=== PATIENT | male | born 1995 | race Caucasian/White ===

== ENCOUNTER → 2016-10-15 | Outpatient (CLI) | payer BC ==
[~2016-10-15] MED LIST: AMOX/CLAV POT 81 TAB PO; AMOXICILLIN500 MG PO; AUGMENTIN 875875 MG PO; CLARITIN10 MG PO; FLONASE 0.05% 121 EA NAS; FLONASE ALLERG9.9 ML NAS; IBU-8800 MG PO; LEVOFLOXACIN500 MG PO; MEDROL DOSEPAK4 MG PO; PERCOCET 325 MG1 TA2 PO; ZOFRAN4 MG PO; ZYRTEC10 MG PO
== END | disposition home or self-care (01) ==
LOC: RAD 16:17
DX: J40 Bronchitis, not specified as acute or chronic (principal)

== ENCOUNTER → 2017-07-28 | Outpatient (CLI) | payer BC ==
[2017-07-28 11:15] LABS: HEMATOCRIT 45.8 % (42.0-52.0); HEMOGLOBIN 15.3 g/dl (14.0-18.0); MEAN CORPUSCULAR HGB 28.4 pg (27.0-31.0); MEAN CORPUSCULAR HGB CONC 33.4 g/dl (33.0-37.0); MEAN PLATELET VOLUME 10.1 fl (9.6-12.3); RED BLOOD COUNT 5.39 10*6/uL (4.50-5.90); RED CELL DISTRI WIDTH 13.2 % (0-14.5); WHITE BLOOD COUNT 8.3 10*3/uL (4.8-10.8)
[2017-07-28 11:41] LABS: ALBUMIN 3.8 gm/dl (3.1-4.5); ALKALINE PHOSPHATASE 71 U/L (45-117); BUN 13 mg/dl (7-24); CHLORIDE 101 mmol/L (98-107); CHOLESTEROL 174 mg/dL (<200); CREATININE 1.01 mg/dL (0.70-1.30); HDL CHOLESTEROL 28 mg/dl (40-60); LDL CHOLESTEROL 120 mg/dL (9-159); POTASSIUM 4.3 mmol/L (3.5-5.1); SGOT/AST 50 IU/L (3-35); SGPT/ALT 86 U/L (12-78); SODIUM 137 mmol/L (136-145); TOTAL PROTEIN 7.8 gm/dL (6.4-8.2); TRIGLYCERIDES 130 mg/dl (<150); VLDL CHOLESTEROL 26 mg/dL (6-40)
== END | disposition home or self-care (01) ==
LOC: LAB 10:07
PROVIDERS: Family Medicine
DX: E78.00 Pure hypercholesterolemia, unspecified (principal); E74.9 Disorder of carbohydrate metabolism, unspecified

== ENCOUNTER → 2017-09-09 | Outpatient (CLI) | payer SELFPAY ==
[2017-09-09 12:42] LABS: HEMATOCRIT 46.5 % (42.0-52.0); HEMOGLOBIN 15.8 g/dl (14.0-18.0); MEAN CELL VOLUME 84.4 fl (80.0-94.0); MEAN CORPUSCULAR HGB 28.7 pg (27.0-31.0); MEAN PLATELET VOLUME 10.2 fl (9.6-12.3); RED BLOOD COUNT 5.51 10*6/uL (4.50-5.90); RED CELL DISTRI WIDTH 13.1 % (0-14.5); WHITE BLOOD COUNT 7.9 10*3/uL (4.8-10.8)
[2017-09-09 13:06] LABS: ALBUMIN 3.9 gm/dl (3.1-4.5); ALKALINE PHOSPHATASE 76 U/L (45-117); BUN 9 mg/dl (7-24); CHLORIDE 102 mmol/L (98-107); CHOLESTEROL 179 mg/dL (<200); HDL CHOLESTEROL 28 mg/dl (40-60); LDL CHOLESTEROL 130 mg/dL (9-159); POTASSIUM 4.2 mmol/L (3.5-5.1); SGOT/AST 39 IU/L (3-35); SGPT/ALT 87 U/L (12-78); SODIUM 138 mmol/L (136-145); TOTAL PROTEIN 7.9 gm/dL (6.4-8.2); TRIGLYCERIDES 103 mg/dl (<150); VLDL CHOLESTEROL 21 mg/dL (6-40)
== END | disposition home or self-care (01) ==
LOC: LAB 11:39
PROVIDERS: Family Medicine
DX: E55.9 Vitamin D deficiency, unspecified (principal)

== ENCOUNTER → 2018-05-25 | Outpatient (CLI) | payer BC ==
[2018-05-25 13:44] LABS: HEMATOCRIT 45.3 % (42.0-52.0); HEMOGLOBIN 15.8 g/dl (14.0-18.0); MEAN CELL VOLUME 84.7 fl (80.0-94.0); MEAN CORPUSCULAR HGB 29.5 pg (27.0-31.0); MEAN CORPUSCULAR HGB CONC 34.9 g/dl (33.0-37.0); MEAN PLATELET VOLUME 10.5 fl (9.6-12.3); RED BLOOD COUNT 5.35 10*6/uL (4.50-5.90); WHITE BLOOD COUNT 8.5 10*3/uL (4.8-10.8)
[2018-05-25 14:13] LABS: ALKALINE PHOSPHATASE 91 U/L (45-117); BUN 9 mg/dl (7-24); CHLORIDE 98 mmol/L (98-107); CHOLESTEROL 179 mg/dL (<200); CREATININE 1.17 mg/dL (0.70-1.30); HDL CHOLESTEROL 23 mg/dl (40-60); LDL CHOLESTEROL 96 mg/dL (9-159); POTASSIUM 4.1 mmol/L (3.5-5.1); SGOT/AST 95 IU/L (3-35); SGPT/ALT 160 U/L (12-78); SODIUM 133 mmol/L (136-145); TOTAL PROTEIN 8.1 gm/dL (6.4-8.2); TRIGLYCERIDES 298 mg/dl (<150); VLDL CHOLESTEROL 60 mg/dL (6-40)
[2018-05-26 07:06] LABS: HEPATITIS B SURFACE AG Negative (Negative); HEPATITIS C VIRUS ANTIBODY 0.2 s/co (0.0-0.9)
== END | disposition home or self-care (01) ==
LOC: LAB 13:24
PROVIDERS: Family Medicine
DX: R53.83 Other fatigue (principal); R05 Cough

== ENCOUNTER → 2018-06-01 | Outpatient (CLI) | payer BC | END | disposition home or self-care (01) | LOC: RAD 15:59 | DX: R05 Cough (principal); R07.9 Chest pain, unspecified ==

== ENCOUNTER 2019-07-24 20:13 | Emergency (ER) | payer OTHER ==
[~2019-07-24] VITALS: Ht 182.8 cm; Wt 145.1 kg
[2019-07-24 20:25] VITALS: BP 163/84
[2019-07-24] MEDS ORDERED: CYCLOBENZAPRINE5 M3 PO (23:03)
[2019-07-24] MEDS ORDERED: Motrin,Rufen800 MG PO (23:03)
== END 2019-07-24 23:16 | disposition home or self-care (01) ==
LOC: ED 20:13
DX: S29.012A Strain of muscle and tendon of back wall of thorax, initial encounter (principal); F31.9 Bipolar disorder, unspecified; Z79.2 Long term (current) use of antibiotics; Z79.899 Other long term (current) drug therapy; W01.0XXA Fall on same level from slipping, tripping and stumbling without subsequent striking against object, initial encounter; Y93.89 Activity, other specified; Y92.89 Other specified places as the place of occurrence of the external cause; Y99.8 Other external cause status

== ENCOUNTER 2020-05-27 13:23 | Emergency (ER) | payer SELFPAY ==
[~2020-05-27] VITALS: Ht 182.8 cm; Wt 136.1 kg
[~2020-05-27 13:23] MED LIST changes: +CYCLOBENZAPRINE5 M3 PO; +Motrin,Rufen800 MG PO
[2020-05-27 13:34] VITALS: BP 154/84
[2020-05-27 14:49] LABS: BASO % 0.3 % (0.0-1.0); EOS # 0.1 10*3/uL (0.0-0.4); EOS % 1.4 % (1.0-4.0); HEMATOCRIT 44.5 % (42.0-52.0); LYMPH # 2.5 10*3/uL (1.3-4.4); MEAN CELL VOLUME 83.5 fl (80.0-94.0); MEAN CORPUSCULAR HGB 27.6 pg (27.0-31.0); MEAN PLATELET VOLUME 9.7 fl (9.6-12.3); MONO # 0.5 10*3/uL (0.1-1.0); MONO % 6.1 % (3.0-9.0); NEUT # 4.6 10*3/uL (2.3-7.9); NEUT % 59.8 % (47.0-73.0); PLATELET COUNT AUTOMATED 249 10*3/uL (130-400); RED BLOOD COUNT 5.33 10*6/uL (4.50-5.90); RED CELL DISTRI WIDTH 13.1 % (0-14.5); WHITE BLOOD COUNT 7.7 10*3/uL (4.8-10.8)
[2020-05-27 15:03] LABS: ACT PARTIAL THROMBO TIME 25.9 SECONDS (20.0-32.1); INTERNATIONAL NORM RATIO 0.9 (2.0-3.5)
[2020-05-27 15:06] LABS: ALBUMIN 3.6 gm/dl (3.1-4.5); ALKALINE PHOSPHATASE 59 U/L (45-117); BUN 13 mg/dl (7-24); CHLORIDE 106 mmol/L (98-107); CREATININE 0.97 mg/dL (0.70-1.30); LIPASE 186 U/L (73-393); POTASSIUM 3.8 mmol/L (3.5-5.1); SGOT/AST 19 IU/L (3-35); SGPT/ALT 47 U/L (12-78); SODIUM 139 mmol/L (136-145); TOTAL PROTEIN 7.7 gm/dL (6.4-8.2)
[2020-05-27 15:08] LABS: TROPONIN I < 0.015 ng/ml (<0.045)
[2020-05-27] MEDS ORDERED: PREDNISONE20 M1 PO (15:24)
[2020-05-27] MEDS ORDERED: PROVENTIL HFA6.7 GM INH (15:24)
[2020-05-27] MEDS ORDERED: CYCLOBENZAPRINE5 M3 PO (21:22)
== END 2020-05-27 15:32 | disposition home or self-care (01) ==
LOC: ED 13:23
PROVIDERS: Physician Assistant
DX: R51.9 Headache, unspecified (principal); R53.83 Other fatigue; R09.89 Other specified symptoms and signs involving the circulatory and respiratory systems; F31.9 Bipolar disorder, unspecified; Z79.899 Other long term (current) drug therapy; Z20.828 Contact with and (suspected) exposure to other viral communicable diseases

== ENCOUNTER 2020-05-27 18:04 | Emergency (ER) | payer OTHER ==
[~2020-05-27 18:04] MED LIST changes: +PREDNISONE20 M1 PO; +PROVENTIL HFA6.7 GM INH
[2020-05-27 18:19] VITALS: BP 137/71
[2020-05-27] MEDS ORDERED: CYCLOBENZAPRINE5 M3 PO (21:22)
== END 2020-05-27 21:24 | disposition home or self-care (01) ==
LOC: ED 18:04
DX: S46.912A Strain of unspecified muscle, fascia and tendon at shoulder and upper arm level, left arm, initial encounter (principal); Z79.899 Other long term (current) drug therapy; V89.2XXA Person injured in unspecified motor-vehicle accident, traffic, initial encounter; Y93.89 Activity, other specified; Y92.89 Other specified places as the place of occurrence of the external cause; Y99.8 Other external cause status

== ENCOUNTER → 2020-07-05 | Outpatient (CLI) | payer SELFPAY | END | disposition home or self-care (01) | LOC: COVID19 11:35 | PROVIDERS: ATTEND Family Medicine | DX: Z20.822 Contact with and (suspected) exposure to COVID-19 (principal) ==

== ENCOUNTER → 2021-02-07 | Outpatient (CLI) | payer SELFPAY ==
[2021-02-08 08:08] LABS: HEPATITIS B SURFACE AB Non Reactive (.); HEPATITIS B SURFACE AG Negative (Negative)
== END | disposition home or self-care (01) ==
LOC: LAB 14:20
PROVIDERS: ATTEND Family Medicine
DX: Z02.0 Encounter for examination for admission to educational institution (principal); Z11.59 Encounter for screening for other viral diseases

== ENCOUNTER → 2021-06-13 | Outpatient (CLI) | payer SELFPAY ==
[2021-06-14 08:08] LABS: HEP B CORE AB, IGM Negative (Negative); HEPATITIS B SURFACE AG Negative (Negative)
[2021-06-14 08:24] LABS: HEPATITIS C VIRUS ANTIBODY <0.1 s/co (0.0-0.9)
== END | disposition home or self-care (01) ==
LOC: LAB 13:05
PROVIDERS: ATTEND Family Medicine
DX: Z72.51 High risk heterosexual behavior (principal)

== ENCOUNTER 2021-12-22 15:55 | Emergency (ER) | payer SELFPAY ==
[~2021-12-22] VITALS: Ht 182.8 cm; Wt 142.9 kg
[2021-12-22 16:02] VITALS: BP 154/98
[2021-12-22] MEDS ORDERED: TYLENOL325 M1 PO (17:00)
[2021-12-22] MEDS ORDERED: NAPROXEN250 MG PO (17:00)
[2021-12-22] MEDS ORDERED: AUGMENTIN 875-875 MG PO (17:00)
== END 2021-12-22 17:13 | disposition home or self-care (01) ==
LOC: ED 15:55
DX: L02.412 Cutaneous abscess of left axilla (principal); Z90.89 Acquired absence of other organs

== ENCOUNTER → 2022-12-05 | Outpatient (CLI) | payer BC ==
[~2022-12-05] MED LIST changes: +AUGMENTIN 875-875 MG PO; +NAPROXEN250 MG PO; +TYLENOL325 M1 PO
== END | disposition home or self-care (01) ==
LOC: MRI 10:00
PROVIDERS: ATTEND Orthopaedic Surgery
DX: R22.32 Localized swelling, mass and lump, left upper limb (principal)

== ENCOUNTER 2023-02-25 12:10 | Emergency (ER) | payer BC ==
[~2023-02-25] VITALS: Ht 182.8 cm; Wt 131.5 kg
[2023-02-25 12:20] VITALS: BP 154/100
[2023-02-25 12:55] LABS: BASO % 0.2 % (0.0-1.0); EOS # 0.1 10*3/uL (0.0-0.4); EOS % 1.5 % (1.0-4.0); HEMATOCRIT 46.4 % (42.0-52.0); LYMPH # 2.1 10*3/uL (1.3-4.4); MEAN CELL VOLUME 83.5 fl (80.0-94.0); MEAN CORPUSCULAR HGB 29.3 pg (27.0-31.0); MEAN CORPUSCULAR HGB CONC 35.1 g/dl (33.0-37.0); MEAN PLATELET VOLUME 9.6 fl (9.6-12.3); MONO # 0.4 10*3/uL (0.1-1.0); NEUT # 5.6 10*3/uL (2.3-7.9); NEUT % 67.9 % (47.0-73.0); PLATELET COUNT AUTOMATED 229 10*3/uL (130-400); RED BLOOD COUNT 5.56 10*6/uL (4.50-5.90); RED CELL DISTRI WIDTH 13.1 % (0-14.5); WHITE BLOOD COUNT 8.2 10*3/uL (4.8-10.8)
[2023-02-25 13:16] LABS: ALKALINE PHOSPHATASE 71 U/L (46-116); BUN 8 mg/dl (9-23); CHLORIDE 98 mmol/L (98-107); CPK 141 U/L (34-171); SGPT/ALT 52 U/L (10-49); TOTAL PROTEIN 7.3 gm/dL (6.0-8.0)
== END 2023-02-25 16:50 | disposition home or self-care (01) ==
LOC: ED 12:10
PROVIDERS: Student in an Organized Health Care Education/Training Program
DX: M79.89 Other specified soft tissue disorders (principal); F31.9 Bipolar disorder, unspecified; Z98.890 Other specified postprocedural states

== ENCOUNTER 2023-08-10 00:41 | Emergency (ER) | payer BC ==
[~2023-08-10] VITALS: Ht 172.7 cm; Wt 113.4 kg
[2023-08-10] MEDS ORDERED: Ondansetron Hydrochloride 4 MG/2 ML VIAL IV ONE (01:15)
[2023-08-10] MEDS ORDERED: HYDROmorphONE Hydrochloride 0.5 MG/0.5 ML SYRINGE IV ONE (01:15)
[2023-08-10 01:43] LABS: BILIRUBIN Negative (Negative); BLOOD Negative (Negative); CLARITY Clear (Clear); COLOR Yellow (Yellow); GLUCOSE Negative (Negative); KETONE Trace (Negative); LEUKO ESTERASE Negative (Negative); NITRITE Negative (Negative); PH 5.5 (4.5-8.0); SPECIFIC GRAVITY 1.025 (1.001-1.030)
[2023-08-10 01:51] LABS: BASO % 0.1 % (0.0-1.0); EOS # 0.1 10*3/uL (0.0-0.4); EOS % 1.1 % (1.0-4.0); HEMATOCRIT 45.8 % (42.0-52.0); LYMPH # 2.3 10*3/uL (1.3-4.4); LYMPH % 22.8 % (27.0-41.0); MEAN CORPUSCULAR HGB 28.4 pg (27.0-31.0); MEAN CORPUSCULAR HGB CONC 33.4 g/dl (33.0-37.0); MEAN PLATELET VOLUME 9.5 fl (9.6-12.3); MONO # 0.6 10*3/uL (0.1-1.0); NEUT # 6.9 10*3/uL (2.3-7.9); NEUT % 69.7 % (47.0-73.0); PLATELET COUNT AUTOMATED 258 10*3/uL (130-400); RED BLOOD COUNT 5.39 10*6/uL (4.50-5.90); RED CELL DISTRI WIDTH 13.4 % (0-14.5); WHITE BLOOD COUNT 9.9 10*3/uL (4.8-10.8)
[2023-08-10 02:12] LABS: ALKALINE PHOSPHATASE 58 U/L (46-116); BUN 9 mg/dl (9-23); CHLORIDE 103 mmol/L (98-107); POTASSIUM 3.8 mmol/L (3.4-5.1); SGPT/ALT 35 U/L (5-49); TOTAL PROTEIN 7.5 gm/dL (6.0-8.0)
[2023-08-10 02:21] VITALS: BP 129/81
[2023-08-10] MEDS ORDERED: OZEMPIC1 MG/0.71 SQ (04:25)
== END 2023-08-10 06:31 | disposition home or self-care (01) ==
LOC: ED 00:41
PROVIDERS: Emergency Medicine
DX: R16.1 Splenomegaly, not elsewhere classified (principal); R11.0 Nausea; E11.9 Type 2 diabetes mellitus without complications; Z87.442 Personal history of urinary calculi; Z79.899 Other long term (current) drug therapy

== ENCOUNTER → 2023-09-10 | Outpatient (CLI) | payer BC ==
[~2023-09-10] MED LIST changes: +OZEMPIC1 MG/0.71 SQ
[2023-09-10 09:57] LABS: ACT PARTIAL THROMBO TIME 27.6 SECONDS (20.0-32.1)
[2023-09-11 05:06] LABS: ALPHA-1-ANTITRYPSIN, SERUM 149 mg/dL (95-164); HBSAG Negative (Negative); HEP B CORE AB, IGM Negative (Negative); HEPATITIS C ANTIBODY Non Reactive (Non Reactive)
[2023-09-11 13:07] LABS: ANTI-DSDNA ANTIBODIES <1 IU/mL (0-9)
[2023-09-11 14:08] LABS: ANTI-SMOOTH MUSCLE ANTIBODY 4 Units (0-19)
== END | disposition home or self-care (01) ==
LOC: LAB 08:49
PROVIDERS: Student in an Organized Health Care Education/Training Program; ATTEND Family Medicine
DX: R16.1 Splenomegaly, not elsewhere classified (principal); K74.60 Unspecified cirrhosis of liver

== ENCOUNTER → 2023-10-22 | Outpatient (CLI) | payer BC | END | disposition home or self-care (01) | LOC: ORTHO 02:25 | PROVIDERS: ATTEND Orthopaedic Surgery | DX: M25.551 Pain in right hip (principal); M79.604 Pain in right leg; R10.30 Lower abdominal pain, unspecified ==

== ENCOUNTER → 2024-03-16 | Outpatient (CLI) | payer BC | END | disposition home or self-care (01) | LOC: US 10:00 | PROVIDERS: ATTEND Family Medicine | DX: R16.1 Splenomegaly, not elsewhere classified (principal) ==

== ENCOUNTER 2024-08-27 21:18 | Emergency (ER) | payer BC ==
[~2024-08-27] VITALS: Ht 177.8 cm; Wt 124.3 kg
[2024-08-27 22:01] LABS: BASO % 0.3 % (0.0-1.0); EOS # 0.1 10*3/uL (0.0-0.4); EOS % 1.5 % (1.0-4.0); HEMATOCRIT 46.2 % (42.0-52.0); MEAN CELL VOLUME 87.2 fl (80.0-94.0); MEAN CORPUSCULAR HGB 28.7 pg (27.0-31.0); MEAN CORPUSCULAR HGB CONC 32.9 g/dl (33.0-37.0); MEAN PLATELET VOLUME 9.7 fl (9.6-12.3); MONO # 0.5 10*3/uL (0.1-1.0); NEUT # 4.9 10*3/uL (2.3-7.9); PLATELET COUNT AUTOMATED 254 10*3/uL (130-400); RED CELL DISTRI WIDTH 13.2 % (0-14.5); WHITE BLOOD COUNT 7.8 10*3/uL (4.8-10.8)
[2024-08-27 22:20] LABS: ACT PARTIAL THROMBO TIME 26.5 SECONDS (20.0-32.1)
[2024-08-27 22:21] LABS: ALKALINE PHOSPHATASE 55 U/L (46-116); BUN 12 mg/dl (9-23); CHLORIDE 102 mmol/L (98-107); POTASSIUM 3.9 mmol/L (3.4-5.1); SGPT/ALT 21 U/L (5-49); TOTAL PROTEIN 7.9 gm/dL (6.0-8.0)
[2024-08-27] MEDS ORDERED: SODIUM CHLORIDE 0.9% 100 ML BAG IV ONE (23:20)
[2024-08-27] MEDS ORDERED: IOHEXOL 350 MG/ML 100 ML VIAL IV ONE (23:20)
[2024-08-27] MEDS ORDERED: diphenhydrAMINE hydrochloride 50 MG/ML VIAL IV ONE (23:50)
[2024-08-27] MEDS ORDERED: Metoclopramide Hydrochloride 10 MG/2 ML VIAL IV ONE (23:50)
[2024-08-27] MEDS ORDERED: Ketorolac Tromethamine 30 MG/ML VIAL IV ONE (23:50)
[2024-08-27] MEDS ORDERED: Dexamethasone Sodium Phospha 20 MG/5 ML VIAL IV ONE (23:50)
[2024-08-27] MEDS ORDERED: ACETAMINOPHEN 325 MG TAB PO ONE (23:50)
[2024-08-27] MEDS ORDERED: SODIUM CHLORIDE 0.9% 1,000 ML IV ONE (23:55)
[2024-08-28 00:27] VITALS: BP 139/85
[2024-08-28] MEDS ORDERED: REGLAN10 M1 PO (04:06)
== END 2024-08-28 04:18 | disposition home or self-care (01) ==
LOC: ED 21:18
PROVIDERS: Internal Medicine
DX: G43.509 Persistent migraine aura without cerebral infarction, not intractable, without status migrainosus (principal); Z79.899 Other long term (current) drug therapy

== ENCOUNTER → 2024-09-10 | Outpatient (CLI) | payer BC ==
[~2024-09-10] MED LIST changes: +REGLAN10 M1 PO
== END ==
LOC: US 13:14 → LAB 13:14 → US 13:30
PROVIDERS: ATTEND Family Medicine
DX: R10.32 Left lower quadrant pain (principal)

== ENCOUNTER → 2025-01-05 | Outpatient (CLI) | payer BC ==
[2025-01-05 12:07] LABS: BUN 13 mg/dl (9-23); SGPT/ALT 39 U/L (5-49)
== END | disposition home or self-care (01) ==
LOC: LAB 11:22
PROVIDERS: ATTEND Orthopaedic Surgery
DX: R53.83 Other fatigue (principal)